=== PATIENT | female | born 1990 | race African-American/Black ===

== ENCOUNTER 2023-04-10 11:41 | Emergency (ER) | payer OTHER ==
[2023-04-10 12:15] VITALS: BP 123/89; PULSE 70; RESP 18; TEMP 99.6; BMI 20.2
== END 2023-04-10 12:45 | disposition home or self-care (01) ==
LOC: FER 11:41
DX: R42 Dizziness and giddiness (principal); R55 Syncope and collapse; F41.9 Anxiety disorder, unspecified
CPT/HCPCS: 82962; 93005; 93010; 99284-25